=== PATIENT | female | born 1980 | race Two or more races ===

== ENCOUNTER 2018-01-17 23:54 | Inpatient (IN) | payer OTHER ==
[~2018-01-17] VITALS: Ht 165.1 cm; Wt 83.5 kg
[2018-01-18] MEDS ORDERED: PRENATAL TABLE1 EAC2 PO (11:11)
[2018-01-18] MEDS ORDERED: ASA81 MG PO (11:12)
[2018-01-18] MEDS ORDERED: FOLIC ACID1 MG PO (11:12)
== END 2018-01-30 15:17 | disposition home or self-care (01) | DRG 781 ==
LOC: LDR 23:54 → OB/GYN 01-21 11:30
PROC: 4A1HXCZ Monitoring of Products of Conception, Cardiac Rate, External Approach (ICD-10-PCS; 2018-01-18)
PROC: BY4FZZZ Ultrasonography of Third Trimester, Single Fetus (ICD-10-PCS; principal; 2018-01-23)
DX: O24.410 Gestational diabetes mellitus in pregnancy, diet controlled (principal); O47.03 False labor before 37 completed weeks of gestation, third trimester; O09.523 Supervision of elderly multigravida, third trimester; Z34.83 Encounter for supervision of other normal pregnancy, third trimester
CPT/HCPCS: 240

== ENCOUNTER 2018-02-19 18:20 | Inpatient (IN) | payer OTHER ==
[~2018-02-19] VITALS: Ht 167.6 cm; Wt 83.0 kg
[~2018-02-19 18:20] MED LIST: ASA81 MG PO; FOLIC ACID1 MG PO; PRENATAL TABLE1 EAC2 PO
== END 2018-02-22 15:37 | disposition home or self-care (01) | DRG 775 ==
LOC: LDR 18:20 → OB/GYN 02-20 18:20
PROC: 10E0XZZ Delivery of Products of Conception, External Approach (ICD-10-PCS; principal; 2018-02-20)
PROC: 0HQ9XZZ Repair Perineum Skin, External Approach (ICD-10-PCS; 2018-02-20)
PROC: 10907ZC Drainage of Amniotic Fluid, Therapeutic from Products of Conception, Via Natural or Artificial Opening (ICD-10-PCS; 2018-02-20)
PROC: 3E033VJ Introduction of Other Hormone into Peripheral Vein, Percutaneous Approach (ICD-10-PCS; 2018-02-20)
PROC: 4A1HXCZ Monitoring of Products of Conception, Cardiac Rate, External Approach (ICD-10-PCS; 2018-02-20)
DX: O70.0 First degree perineal laceration during delivery (principal); O24.424 Gestational diabetes mellitus in childbirth, insulin controlled; Z3A.37 37 weeks gestation of pregnancy; Z37.0 Single live birth